=== PATIENT | female | born 1960 | race Caucasian/White ===

== ENCOUNTER 2017-08-27 15:22 | Inpatient (IN) | payer OTHER ==
[~2017-08-27] VITALS: Ht 167.6 cm; Wt 78.9 kg
--- NOTE | ~2017-08-27 | EKG ---
[place] [address] [facility] [place] [address] ELECTROCARDIOGRAM REPORT Name: RIO GARCIA Room #: 430-P ADM IN M.R.#: [id number] Admission: 08/27/17 Attend Phys: Vj Jose DO Discharge: Date of : 56 Report #: [id number] THIS REPORT FOR: //name// [facility] ED Test Date: 2017-08-27 Test Time: 15:55:30 Pat Name: RIO GARCIA Department: Room: 430 Gender: F [employer]: HELEN : 1960 Requested By: Agnieszka Lombardi Order Number: [id number] MD: Arik Ryan Measurements Intervals [place] Rate: 89 P: 26 NV: 137 QRS: 17 QRSD: 91 T: 16 QT: 409 QTc: 498 Interpretive Statements Sinus rhythm Low voltage, extremity leads Borderline prolonged QT interval No previous ECG available for comparison Electronically Signed On 08-28-2017 8:30:06 ADVISOR CONSULTANT by Arik Ryan [email or web address] <ELECTRONICALLY SIGNED> By: Arik Ryan MD, [facility] 08/28/17 0830 1555 1555 Arik Ryan MD, FACC /EPI
--- NOTE | ~2017-08-27 | EKG ---
[place] [address] [place] [address] ELECTROCARDIOGRAM REPORT Name: RIO GARCIA Room #: REG MARGA Rubin#: [id number] Admission: 08/27/17 Attend Phys: Discharge: Date of : 56 Report #: [id number] THIS REPORT FOR: //name// [facility] ED Test Date: 2017-08-27 Test Time: 15:55:30 Pat Name: RIO GARCIA Department: Patient ID: [id number]- Room: Gender: F Technical Buyer: : 1960 Requested By: Agnieszka Lombardi Order Number: [id number] MD: Roger Swan Measurements Intervals [place] Rate: 89 P: 26 ID: 137 QRS: 17 QRSD: 91 T: 16 QT: 409 QTc: 498 Interpretive Statements Sinus rhythm Low voltage, extremity leads Borderline prolonged QT interval Compared to ECG 07/23/2017 01:19:43 Low QRS voltage now present Sinus arrhythmia no longer present Electronically Signed On 08-27-2017 16:48:08 DIRECTOR FUNERAL by Roger Swan [email or web address] <ELECTRONICALLY SIGNED> By: Roger Swan MD, [facility] 08/27/17 1648 1555 1555 Roger Swan MD, [facility] /EPI
[2017-08-27 15:27] VITALS: BP 110/71
[2017-08-27 15:53] LABS: ABSOLUTE NEUTROPHILS 5.2 thou/uL (1.4-8.2); BASOPHILS 0.5 % (0.0-2.0); EOSINOPHILS 0.3 % (0.0-3.0); HEMATOCRIT 37.8 % (37.0-47.0); HEMOGLOBIN 12.6 gm/dL (12.0-15.0); LYMPHOCYTES 13.5 % (24.0-44.0); MCH 29.6 pg (26.0-34.0); MCHC 33.5 g/dL (28.0-37.0); MCV 88.4 fL (80.0-100.0); MONOCYTES 1.2 % (1.0-8.0); PLATELET COUNT 160 thou/uL (150-400); POLYS 84.5 % (36.0-66.0); RBC 4.27 mil/uL (4.20-5.00); RDW 13.5 % (10.5-14.5); WBC 6.1 thou/uL (4.0-11.0)
[2017-08-27 16:04] LABS: CALCIUM 9.2 mg/dL (8.5-10.1); CREATININE 1.6 mg/dL (0.6-1.0); POTASSIUM 4.4 mmol/L (3.5-5.1)
[2017-08-27 16:07] LABS: ALBUMIN 3.3 g/dL (3.4-5.0); MAGNESIUM 1.5 mg/dL (1.8-2.4); TOTAL BILIRUBIN 0.6 mg/dL (<0.1-1.0); TOTAL PROTEIN 7.2 g/dL (6.4-8.2)
[2017-08-27 18:05] LABS: URINE BILIRUBIN NEGATIVE (Negative); URINE BLOOD TRACE (Negative); URINE CLARITY CLEAR; URINE COLOR YELLOW; URINE GLUCOSE-RANDOM* 3+ (Negative); URINE KETONES NEGATIVE (Negative); URINE LEUKOCYTES NEGATIVE (Negative); URINE NITRITE NEGATIVE (Negative); URINE PROTEIN (DIPSTICK) NEGATIVE (Negative); URINE UROBILINOGEN 0.2 E.U./dl (0.2-1.0)
[2017-08-27] MEDS ORDERED: NEURONTIN 300300 M1 PO (18:50)
[2017-08-27] MEDS ORDERED: XANAX1 MG PO (18:51)
[2017-08-27] MEDS ORDERED: ZANAFLEX4 MG PO (18:51)
[2017-08-27] MEDS ORDERED: [UNRECOGNIZED DRUG - OTHER] (18:52)
[2017-08-27] MEDS ORDERED: PREDNISONE 5 MG5 M1 PO (18:52)
[2017-08-27] MEDS ORDERED: OXYCODONE-ACET1 EAC2 PO (18:53)
[2017-08-27] MEDS ORDERED: VIIBRYD1 EAC1 PO (18:55)
[2017-08-27 19:28] VITALS: BP 100/66
[2017-08-27 19:35] VITALS: BP 122/71
[2017-08-27 20:00] VITALS: BP 150/90
[2017-08-28 04:25] VITALS: BP 125/73
[2017-08-28 08:27] LABS: ABSOLUTE NEUTROPHILS 7.9 thou/uL (1.4-8.2); BASOPHILS 0.5 % (0.0-2.0); HEMATOCRIT 34.6 % (37.0-47.0); HEMOGLOBIN 11.8 gm/dL (12.0-15.0); LYMPHOCYTES 9.8 % (24.0-44.0); MCH 29.5 pg (26.0-34.0); MCHC 34.2 g/dL (28.0-37.0); MCV 86.5 fL (80.0-100.0); MONOCYTES 6.6 % (1.0-8.0); PLATELET COUNT 164 thou/uL (150-400); POLYS 83.1 % (36.0-66.0); RDW 13.4 % (10.5-14.5); WBC 9.5 thou/uL (4.0-11.0)
[2017-08-28 08:34] LABS: CALCIUM 9.2 mg/dL (8.5-10.1); CREATININE 1.4 mg/dL (0.6-1.0); POTASSIUM 4.5 mmol/L (3.5-5.1)
[2017-08-28 08:45] VITALS: BP 136/78
[2017-08-28 14:45] VITALS: BP 119/68
[2017-08-28 20:18] VITALS: BP 133/81
[2017-08-29 03:30] VITALS: BP 136/82
[2017-08-29 04:09] LABS: GLYCOHEMOGLOBIN (HGB A1C) 9.7 % (4.8-5.6)
[2017-08-29 06:20] LABS: CALCIUM 8.3 mg/dL (8.5-10.1); POTASSIUM 4.9 mmol/L (3.5-5.1)
[2017-08-29 06:35] LABS: ABSOLUTE NEUTROPHILS 3.8 thou/uL (1.4-8.2); BASOPHILS 0.9 % (0.0-2.0); EOSINOPHILS 1.8 % (0.0-3.0); HEMATOCRIT 34.2 % (37.0-47.0); HEMOGLOBIN 11.8 gm/dL (12.0-15.0); LYMPHOCYTES 24.6 % (24.0-44.0); MCH 30.2 pg (26.0-34.0); MCHC 34.4 g/dL (28.0-37.0); MCV 87.9 fL (80.0-100.0); MONOCYTES 8.1 % (1.0-8.0); PLATELET COUNT 151 thou/uL (150-400); POLYS 64.6 % (36.0-66.0); RBC 3.89 mil/uL (4.20-5.00); RDW 13.8 % (10.5-14.5); WBC 5.9 thou/uL (4.0-11.0)
[2017-08-29] MEDS ORDERED: TAMIFLU30 MG PO (08:52)
[2017-08-29 09:16] VITALS: BP 136/82
== END 2017-08-29 10:17 | disposition home or self-care (01) | DRG 638 ==
LOC: ER 15:22 → EROBS 18:05 → 4E 19:40 → ENTRNSPT 08-29 09:54 → EDTRNSPTSTS 08-29 09:55 → 4E 08-29 10:17
PROVIDERS: Family Medicine; Nurse Practitioner Family
DX: E11.65 Type 2 diabetes mellitus with hyperglycemia (principal); N17.9 Acute kidney failure, unspecified; M19.90 Unspecified osteoarthritis, unspecified site; J11.1 Influenza due to unidentified influenza virus with other respiratory manifestations; J44.9 Chronic obstructive pulmonary disease, unspecified; Z20.828 Contact with and (suspected) exposure to other viral communicable diseases; K74.60 Unspecified cirrhosis of liver; Z79.899 Other long term (current) drug therapy; Z79.4 Long term (current) use of insulin
CPT/HCPCS: 10183

== ENCOUNTER 2018-03-11 13:17 | Inpatient (IN) | payer OTHER ==
[~2018-03-11] VITALS: Ht 167.6 cm; Wt 80.3 kg
--- NOTE | ~2018-03-11 | EKG ---
[place] [address] [address] [facility] [place] [address] ELECTROCARDIOGRAM REPORT Name: RIO GARCIA Room #: 462-P ADM IN M.R.#: [id number] Admission: 03/11/18 Attend Phys: Rosas Rowan MD Discharge: Date of : 56 Report #: [id number] THIS REPORT FOR: //name// [facility] ED Test Date: 2018-03-11 Test Time: 13:29:23 Pat Name: RIO GARCIA Department: Room: 170 2 Gender: F Tax Revenue Officer: [facility] : 1960 Requested By: Zina Díaz Order Number: [id number] MD: Arik Ryan Measurements Intervals [place] Rate: 72 P: 41 MD: 137 QRS: 26 QRSD: 89 T: 34 QT: 443 QTc: 485 Interpretive Statements Sinus rhythm Borderline low voltage, extremity leads Compared to ECG 08/27/2017 15:55:30 No significant changes Electronically Signed On 03-12-2018 7:48:13 CDT by Arik Ryan [email or web address] <ELECTRONICALLY SIGNED> By: Arik Ryan MD, [facility] 03/12/18 0748 28 Arik Ryan MD, [facility] /EPI
--- NOTE | ~2018-03-11 | 2DMMODE ---
[facility] [address] [place] [address] 2 D/M-MODE ECHOCARDIOGRAM Name: RIO GARCIA Room #: 462-P ADM IN M.R.#: [id number] Admission: 03/11/18 Attend Phys: Rosas Rowan MD Discharge: Date of : 56 Date of Service: 03/14/18 1145 Report #: [id number] THIS REPORT FOR: //name// APPROVED REPORT Study performed: 03/14/2018 11:02:42 EXAM: Comprehensive 2D, Doppler, and color-flow Echocardiogram Patient Location: Echo lab Room #: 462 Status: routine BSA: 1.88 HR: 76 bpm BP: 197/75 mmHg Rhythm: NSR Other Information Study Quality: Good Indications Diabetes Dizziness and Vertigo Hypertension/HDD 2D Dimensions RVDd: 34.68 mm LVEF(%): 55.67 (>50%) IVSd: 12.12 (7-11mm) LVOT Diam: 18.59 (18-24mm) LVDd: 45.96 mm PWd: 11.72 (7-11mm) Ascending Ao: 25.96 (22-36mm) LVDs: 32.67 (25-40mm) Aortic Root: 32.36 mm IVC: 15.00 mm Krishnamurthy's LVEF: 55.67 % Volumes Left Atrial Volume (Systole) Single Plane 4CH: 43.90 mL Single Plane 2CH: 44.17 mL LA ESV Index: 26.00 mL/m2 Aortic Valve AoV Peak Hu.: 1.50 m/s AO Peak Gr.: 9.05 mmHg LVOT Max P.72 mmHg LVOT Max V: 1.20 m/s RUBIN Vmax: 2.16 cm2 Mitral Valve [facility] [address] [place] [address] 2 D/M-MODE ECHOCARDIOGRAM Name: RIO GARCIA Room #: 462-[facility] IN .R.#: [id number] Admission: 03/11/18 Attend Phys: Rosas Rowan MD Discharge: Date of : 56 Date of Service: 03/14/18 1145 Report #: [id number] E/A Ratio: 0.9 MV Decel. Time: 247.94 ms MV E Max Hu.: 0.91 m/s MV A Hu.: 1.04 m/s MV PHT: 71.90 ms IVRT: 110.73 ms Pulmonary Valve PV Peak Hu.: 0.92 m/s PV Peak Gr.: 3.41 mmHg Pulmonary Vein P Vein S: 0.54 m/s P Vein A: 0.28 m/s P Vein D: 0.34 m/s P Vein A Dur.: 92.3 msec P Vein S/D Ratio: 1.59 Tricuspid Valve TR Peak Hu.: 2.51 m/s TR Peak Gr.: 25.26 mmHg PA Pressure: 30.00 mmHg Left Ventricle The left ventricle is normal size. There is normal LV segmental wall motion. There is normal left ventricular wall thickness. Left ventricular systolic function is normal. The left ventricular ejection fraction is within the normal range. LVEF is 55-60%. Grade I - abnormal relaxation pattern. Right Ventricle The right ventricle is normal size. The right ventricular systolic function is normal. Atria The left atrium size is normal. The right atrium size is normal. Aortic Valve The aortic valve is normal in structure. No aortic regurgitation is present. There is no aortic valvular stenosis. Mitral Valve The mitral valve is normal in structure. There is no mitral valve regurgitation noted. No evidence of mitral valve stenosis. Tricuspid Valve The tricuspid valve is normal in structure. There is trace to mild tricuspid regurgitation. Estimated PAP 30 mmHg. There is no pulmonary [address] [address] 2 D/M-MODE ECHOCARDIOGRAM Name: RIO GARCIA Room #: 462- ADM IN ..#: [id number] Admission: 03/11/18 Attend Phys: Rosas Rowan MD Discharge: Date of : 56 Date of Service: 03/14/18 1145 Report #: [id number] hypertension. Pulmonic Valve The pulmonary valve is normal in structure. There is no pulmonic valvular regurgitation. Great Vessels The aortic root is normal in size. IVC is normal in size and collapses with >50% inspiration Pericardium There is no pericardial effusion. <Conclusion> The left ventricle is normal size. LVEF is 55-60%. The aortic valve is normal in structure. The mitral valve is normal in structure. The tricuspid valve is normal in structure. There is trace to mild tricuspid regurgitation. Estimated PAP 30 mmHg. There is no pulmonary hypertension. The pulmonary valve is normal in structure. There is no pericardial effusion. <ELECTRONICALLY SIGNED> By: John Blandon MD 03/14/18 1145 1145 1145 John Blandon MD /INF
[~2018-03-11 13:17] MED LIST: NEURONTIN 300300 M1 PO; OXYCODONE-ACET1 EAC2 PO; PREDNISONE 5 MG5 M1 PO; TAMIFLU30 MG PO; VIIBRYD1 EAC1 PO; XANAX1 MG PO; ZANAFLEX4 MG PO; [UNRECOGNIZED DRUG - OTHER]
[2018-03-11 13:21] VITALS: BP 126/71
[2018-03-11 13:43] LABS: HEMATOCRIT 38.9 % (37.0-47.0); HEMOGLOBIN 12.9 gm/dL (12.0-15.0); MCH 28.6 pg (26.0-34.0); MCHC 33.1 g/dL (28.0-37.0); MCV 86.5 fL (80.0-100.0); RBC 4.5 mil/uL (4.20-5.00); RDW 14.2 % (10.5-14.5); WBC 6.2 thou/uL (4.0-11.0)
[2018-03-11 13:48] LABS: POC ANION GAP 15 mmol/L (7-16); POC BUN 21 mg/dL (7-18); POC CA IONIZED 4.9 mg/dL (4.5-5.3); POC CHLORIDE 97 mmol/L (98-107); POC GLUCOSE > 546 mg/dL (70-99); POC HEMOGLOBIN 13.3 g/dL (12.0-15.0); POC POTASSIUM 4.6 mmol/L (3.5-5.1); POC SODIUM 130 mmol/L (136-145); POC TCO2 23 mmol/L (21-32)
[2018-03-11 13:56] LABS: ALBUMIN 3.4 g/dL (3.4-5.0); DIRECT BILIRUBIN 0.3 mg/dL (<0.1-0.3); TOTAL BILIRUBIN 0.9 mg/dL (<0.1-1.0); TOTAL PROTEIN 7.9 g/dL (6.4-8.2)
[2018-03-11 14:13] LABS: URINE BILIRUBIN NEGATIVE (Negative); URINE BLOOD NEGATIVE (Negative); URINE CLARITY CLEAR; URINE COLOR YELLOW; URINE GLUCOSE-RANDOM* 3+ (Negative); URINE KETONES NEGATIVE (Negative); URINE LEUKOCYTES NEGATIVE (Negative); URINE NITRITE NEGATIVE (Negative); URINE PROTEIN (DIPSTICK) NEGATIVE (Negative); URINE SPECIFIC GRAVITY <= 1.005 (1.005-1.035); URINE UROBILINOGEN 0.2 E.U./dl (0.2-1.0)
[2018-03-11 14:26] LABS: AMP/METHAMP Negative (Negative); BARBITURATES Negative (Negative); BENZODIAZEPINES POSITIVE (Negative); COCAINE Negative (Negative); METHADONE Negative (Negative); OPIATES Negative (Negative); PCP Negative (Negative)
[2018-03-11 14:51] LABS: BE(vivo) -6.3 mmol/L (-2 to +3); HCO3 18.5 mmol/L (22.0-26.0); PCO2 VENOUS 34.2 mmHg (41.0-51.0); PO2 VENOUS 85.5 mmHg (35.0-45.0)
[2018-03-11 15:21] VITALS: BP 147/84
[2018-03-11 15:30] VITALS: BP 147/84
[2018-03-11 16:35] VITALS: BP 146/85
[2018-03-11 20:08] VITALS: BP 147/79
[2018-03-12] VITALS (8 sets, daily range): BP systolic 88–152; BP diastolic 55–71
[2018-03-12 05:32] LABS: HEMATOCRIT 35.1 % (37.0-47.0); HEMOGLOBIN 11.9 gm/dL (12.0-15.0); MCH 28.8 pg (26.0-34.0); MCV 84.5 fL (80.0-100.0); RBC 4.15 mil/uL (4.20-5.00); WBC 9.2 thou/uL (4.0-11.0)
[2018-03-12 05:48] LABS: CALCIUM 9.1 mg/dL (8.5-10.1); CREATININE 1.1 mg/dL (0.6-1.0); POTASSIUM 3.6 mmol/L (3.5-5.1)
[2018-03-13 04:27] VITALS: BP 135/68
[2018-03-13 07:38] VITALS: BP 147/91
[2018-03-13 11:25] LABS: HEMATOCRIT 37.2 % (37.0-47.0); HEMOGLOBIN 12.3 gm/dL (12.0-15.0); MCH 28.5 pg (26.0-34.0); MCHC 33.2 g/dL (28.0-37.0); RBC 4.33 mil/uL (4.20-5.00); RDW 14.4 % (10.5-14.5); WBC 5.4 thou/uL (4.0-11.0)
[2018-03-13 11:57] LABS: ALBUMIN 2.8 g/dL (3.4-5.0); CALCIUM 8.1 mg/dL (8.5-10.1); MAGNESIUM 1.4 mg/dL (1.8-2.4); POTASSIUM 3.3 mmol/L (3.5-5.1); TOTAL BILIRUBIN 0.3 mg/dL (<0.1-1.0); TOTAL PROTEIN 6.7 g/dL (6.4-8.2)
[2018-03-13 15:33] VITALS: BP 178/90
[2018-03-13 20:20] VITALS: BP 155/72
[2018-03-14 03:33] VITALS: BP 147/70
[2018-03-14 05:43] VITALS: BP 145/70
[2018-03-14 07:50] VITALS: BP 167/75
[2018-03-14 10:04] LABS: HEMATOCRIT 39.2 % (37.0-47.0); MCH 28.7 pg (26.0-34.0); MCHC 33.2 g/dL (28.0-37.0); MCV 86.6 fL (80.0-100.0); RBC 4.53 mil/uL (4.20-5.00); RDW 14.6 % (10.5-14.5); WBC 4.1 thou/uL (4.0-11.0)
[2018-03-14 10:16] LABS: ALBUMIN 3.1 g/dL (3.4-5.0); CALCIUM 8.7 mg/dL (8.5-10.1); MAGNESIUM 1.8 mg/dL (1.8-2.4); TOTAL BILIRUBIN 0.5 mg/dL (<0.1-1.0); TOTAL PROTEIN 7.2 g/dL (6.4-8.2)
[2018-03-14 10:17] LABS: POTASSIUM 4.3 mmol/L (3.5-5.1)
[2018-03-14 16:50] VITALS: BP 168/76
[2018-03-15 03:29] VITALS: BP 151/73
[2018-03-15 05:45] LABS: HEMATOCRIT 41.4 % (37.0-47.0); HEMOGLOBIN 13.5 gm/dL (12.0-15.0); MCH 28.3 pg (26.0-34.0); MCHC 32.6 g/dL (28.0-37.0); MCV 86.9 fL (80.0-100.0); RBC 4.76 mil/uL (4.20-5.00); RDW 14.6 % (10.5-14.5); WBC 5.4 thou/uL (4.0-11.0)
[2018-03-15 06:00] LABS: CALCIUM 8.8 mg/dL (8.5-10.1); MAGNESIUM 1.6 mg/dL (1.8-2.4); POTASSIUM 3.7 mmol/L (3.5-5.1)
[2018-03-15 08:24] VITALS: BP 143/76
[2018-03-15] MEDS ORDERED: ZANAFLEX2 MG PO (11:24)
[2018-03-15] MEDS ORDERED: BENTYL 10 MG CA10 M1 PO (11:24)
[2018-03-15] MEDS ORDERED: GABAPENTIN 100100 MG PO (11:25)
[2018-03-15 15:49] LABS: ALBUMIN 3.2 g/dL (3.4-5.0); DIRECT BILIRUBIN 0.2 mg/dL (<0.1-0.3); TOTAL BILIRUBIN 0.6 mg/dL (<0.1-1.0); TOTAL PROTEIN 7.4 g/dL (6.4-8.2)
[2018-03-15 16:20] VITALS: BP 152/76
[2018-03-15 17:35] VITALS: BP 152/76
== END 2018-03-15 18:30 | disposition home or self-care (01) | DRG 638 ==
LOC: ER 13:17 → EROBS 14:41 → 4W 16:12
PROVIDERS: Hospitalist; Internal Medicine; Student in an Organized Health Care Education/Training Program
DX: E11.65 Type 2 diabetes mellitus with hyperglycemia (principal); E87.1 Hypo-osmolality and hyponatremia; K59.00 Constipation, unspecified; I10 Essential (primary) hypertension; R26.2 Difficulty in walking, not elsewhere classified; I95.1 Orthostatic hypotension; E11.42 Type 2 diabetes mellitus with diabetic polyneuropathy; M06.9 Rheumatoid arthritis, unspecified; J44.9 Chronic obstructive pulmonary disease, unspecified; F41.9 Anxiety disorder, unspecified; M19.90 Unspecified osteoarthritis, unspecified site; K75.81 Nonalcoholic steatohepatitis (NASH); Z88.1 Allergy status to other antibiotic agents; Z88.8 Allergy status to other drugs, medicaments and biological substances; Z90.710 Acquired absence of both cervix and uterus; Z90.49 Acquired absence of other specified parts of digestive tract; Z79.4 Long term (current) use of insulin; Z79.899 Other long term (current) drug therapy; Z91.81 History of falling
CPT/HCPCS: 10045